=== PATIENT | male | born 1965 | race Caucasian/White ===

== ENCOUNTER 2019-04-13 11:15 | Day surgery (SDC) | payer OTHER ==
[2019-04-13] VITALS (14 sets, daily range): BP systolic 102–135; BP diastolic 67–84; PULSE 58–75; RESP 12–22; Ht 182.9 cm; Wt 84.8 kg
[~2019-04-13] VITALS: Ht 182.9 cm; Wt 84.8 kg
[~2019-04-13 11:15] MED LIST: CEFAZOLIN 2 GM/50 ML (PMX) 50 ML IVPB ONE; SOD CHLORIDE 0.9% 1,000 ML IV SCH
--- NOTE | 2019-04-13 14:17 | PREAC ---
Date/Time of Note Date/Time of Note DATE: 04/13/19 TIME: 14:16 Anesthesia Eval and Record Evaluation Time Pre-Procedure Interview DATE: 04/13/19 TIME: 14:16 Age 54 Sex male NPO: 8 hrs Preoperative diagnosis right inguinal hernia Planned procedure open right inguinal hernia repair with mesh Past Medical History Past Medical History: None Surgery & Anesthesia Issues No known issue Meds Anticoagulation: No Beta Elvira within 24 hr: No Reason Beta Elvira not given: Pt. not on B-Elvira No Active Prescriptions or Reported Meds Current Medications Sodium Chloride 1,000 ml @ 75 mls/hr [id number] IV ; Start 04/13/19 at 10:00; Stop 04/13/19 at 23:19 Meds reviewed: Yes Allergies Coded Allergies: No Known Drug Allergies (Unverified Allergy, Unknown, 04/12/19) Allergies Reviewed: Yes Labs/Studies Labs Reviewed: Reviewed by anesthesiologist test: N/A Pre-procedure Exam Last vitals Vital Signs Date Temp Pulse Resp B/P (MAP) Pulse Ox O2 O2 Flow FiO2 Time Delivery Rate 04/13/19 99.1 75 16 130/75 97 Room Air 12:14 (93) Airway: Adequate mouth opening, Adequate thyromental dist Mallampati: Mallampati II Teeth: Normal Lung: Normal Heart: Normal ASA Physical Status ASA physical status: 1 Emergency: None Planned Anesthetic General/MAC: ETT Nerve block: TAP (right) Planned Pain Management Single shot nerve block, Parenteral pain med Pre-operative Attestations Prior to commencing anesthesia and surgery, the patient was re-evaluated, there was verification of: *The patient's identity *The results of appropriate recent lab work and preoperative vital signs *The above evaluation not changing prior to induction *Anesthetic plan, risk benefits, alternative and complications discussed with patient/family; questions answered; patient/family understands, accepts and wishes to proceed. EDUARDO LINDSEY MD April 13, 2019 14:17
[2019-04-13] MEDS ORDERED: DIPHENHYDRAMINE 50 MG INJ IV PRN (14:30)
[2019-04-13] MEDS ORDERED: PROCHLORPERAZINE 10 MG INJ IV PRN (14:30)
[2019-04-13] MEDS ORDERED: FENTAnyl 50 MCG/ML VIAL IV PRN (14:30)
[2019-04-13] MEDS ORDERED: HYDROmorphONE 1 MG/5 ML IV SYRINGE IV PRN ×3 (14:30)
[2019-04-13] MEDS ORDERED: ONDANSETRON 4 MG INJ IV PRN (14:30)
[2019-04-13] MEDS ORDERED: OXYCODONE/ACETAMINOPHEN (5/325) TAB PO PRN (14:30)
[2019-04-13] MEDS ORDERED: MEPERIDINE 25 MG INJ IV PRN (14:30)
[2019-04-13] MEDS ORDERED: SUCCINYLCHOLINE CHLORIDE 100 MG/5 ML SYG IV ONE (14:36)
[2019-04-13] MEDS ORDERED: FENTAnyl 50 MCG/ML VIAL ONE (14:36)
[2019-04-13] MEDS ORDERED: PROPOFOL 20 ML ONE ×2 (14:36→14:58)
[2019-04-13] MEDS ORDERED: LIDOCAINE 2% (SDV) 5 ML INJ ONE (14:36)
[2019-04-13] MEDS ORDERED: ROCURONIUM 50 MG INJ ONE (14:36)
[2019-04-13] MEDS ORDERED: ROPIVACAINE 0.5 % 30 ML VIAL ONE (14:37)
[2019-04-13] MEDS ORDERED: MIDAZOLAM 1 MG/ML 2 ML INJ ONE (14:37)
[2019-04-13] MEDS ORDERED: ONDANSETRON 4 MG INJ ONE (14:53)
[2019-04-13] MEDS ORDERED: CEFAZOLIN 1 GM INJ ONE (14:53)
[2019-04-13] MEDS ORDERED: DEXAMETHASONE 4 MG/ML 5 ML INJ ONE (14:53)
[2019-04-13] MEDS ORDERED: HYDROmorphONE 2 MG/ML SYG ONE (14:59)
[2019-04-13] MEDS ORDERED: EPHEDrine 25 MG/5 ML SYG ONE (15:23)
[2019-04-13] MEDS ORDERED: SUGAMMADEX SODIUM 200 MG/2 ML VIAL IV ONE (15:28)
--- NOTE | 2019-04-13 15:46 | OPR ---
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 He request surgical repair. Risks alternatives benefits and personal were discussed the patient. Patient expressed understanding and consents to the operation. Procedure Description Patient is taken to the OR and prepped and draped in usual sterile fashion. Surgical timeout was performed. IV antibiotics given. Right inguinal oblique incision was made with a 10 blade. Dissection with cardioscan to the external oblique. The external oblique fascia was attenuated and stretched out. Small incision was made with a 15 blade and this incision was extended medial fairly lateral sparely with Metzenbaum scissors. Cord structures were identified and encircled with a Alem drain. Very large incarcerated indirect hernia was identified and lysis of adhesions performed. Manual reduction of the hernia was then performed. This area was then bolstered with the disc portion of the ultra pro hernia system mesh. The disc is secured in place with a running 0 Prolene from the pubic tubercle along the shelving single limit. Superiorly the disc is secured to enter oblique with interrupted 3-0 Vicryl. Onlay mesh was secured in a similar fashion with a running 0 Prolene from the pubic tubercle along the shelving is unlimited. Superiorly the onlay mesh is secured with interrupted 3- 0 Vicryl. Straps are created reapproximate around the cord structures with interrupted 0 Prolene to recreate the inguinal ring. External oblique fascia is closed over the mesh with a running 3-0 Vicryl. Tova's fascia was closed with interrupted 3-0 Vicryl. Skin is closed using absorbable inzorb skin stapler. Steri-Strips and dry dressings were applied. Shauna BURGOS April 13, 2019 15:46
[2019-04-13] MEDS ORDERED: HYDROCODONE/APAP (5/325) TAB PO ONE (16:00)
--- NOTE | 2019-04-13 16:08 | PAC ---
Date/Time of Note Date/Time of Note DATE: 04/13/19 TIME: 16:07 Post-Anesthesia Notes Post-Anesthesia Note Last documented vital signs Vital Signs Date Temp Pulse Resp B/P (MAP) Pulse Ox O2 O2 Flow FiO2 Time Delivery Rate 04/13/19 98.1 15:51 04/13/19 75 16 130/75 97 Room Air 12:14 (93) Activity: WNL Respiratory function: WNL Cardiovascular function: WNL Mental status: Baseline Pain reasonably controlled: Yes Hydration appropriate: Yes Nausea/Vomiting absent: Yes Comments Bp: 112/78 HR: 67 RR: 15 T: 98 SaO2: 97% EDUARDO MUNIZ MD April 13, 2019 16:08
== END 2019-04-13 17:15 | disposition home or self-care (01) ==
LOC: SDS 11:15
PROVIDERS: ATTEND Surgery
DX: K40.30 Unilateral inguinal hernia, with obstruction, without gangrene, not specified as recurrent (principal)
CPT/HCPCS: 49507; J0690; J1100; J1170; J2250; J2405; J2795; J3010; Z7610; C1781